=== PATIENT | female | born 1995 | race Caucasian/White ===

== ENCOUNTER 2017-02-11 17:36 | Emergency (ER) | payer OTHER | END 2017-02-11 20:09 | disposition home or self-care (01) | LOC: FER 17:36 | DX: J02.9 Acute pharyngitis, unspecified (principal) | CPT/HCPCS: 87450; 87804; 87899; J0561 ==

== ENCOUNTER 2017-04-06 15:15 | Emergency (ER) | payer OTHER ==
[2017-04-06 16:17] LABS: BASOPHIL 0.2 % (0-2); EOSINOPHIL 0.8 % (0-5); LYMPHOCYTE 18.6 % (15-48); MCH 31.6 pg (25.0-31.0); MCV 90.3 fL (78.0-100.0); MONOCYTE 6.9 % (0-12); MPV 11.2 fL (6.0-9.5); NEUTROPHIL 73.5 % (41-80); PLT 259 K/uL (150-400); RBC 4.43 M/uL (4.20-5.40); RDW 12.3 % (11.5-14.0); WBC 8.4 K/uL (4.0-10.5)
[2017-04-06 16:31] LABS: ACETAMINOPHEN (TYLENOL) < 5.0 ug/mL (10.0-30.0); ALCOHOL (ETOH) MEDICAL NONE DETECTED; SALICYLATE 7 ug/mL (0-300)
[2017-04-06 16:34] LABS: CREATININE 0.7 mg/dL (0.5-1.0); POTASSIUM 3.7 mmol/L (3.5-5.1)
[2017-04-06 16:52] LABS: BILIRUBIN NEGATIVE (NEGATIVE); BLOOD NEGATIVE Ery/uL (NEGATIVE); CLARITY CLEAR (CLEAR); COLOR YELLOW (YELLOW); GLUCOSE (U) NORMAL (NORMAL); KETONE (U) NEGATIVE (NEGATIVE); LEUKOCYTES NEGATIVE Leu/uL (NEGATIVE); NITRITE NEGATIVE (NEGATIVE); PROTEIN NEGATIVE (NEGATIVE); UROBILINOGEN 0.2 mg/dL (0.2-1.0); pH 7.5 (5.0-9.0)
[2017-04-06 17:04] LABS: AMPHETAMINES NEGATIVE (NEGATIVE); BARBITURATES NEGATIVE (NEGATIVE); BENZODIAZEPINES NEGATIVE (NEGATIVE); COCAINE NEGATIVE (NEGATIVE); MARIJUANA (THC) NEGATIVE (NEGATIVE); METHADONE NEGATIVE (NEGATIVE); TRICYCLIC ANTIDEPRESSANT NEGATIVE (NEGATIVE)
== END 2017-04-06 20:00 | disposition other institution (70) ==
LOC: FER 15:15
PROVIDERS: Emergency Medicine
DX: F32.9 Major depressive disorder, single episode, unspecified (principal); F41.9 Anxiety disorder, unspecified; F43.10 Post-traumatic stress disorder, unspecified; Z87.891 Personal history of nicotine dependence; Z79.899 Other long term (current) drug therapy
CPT/HCPCS: 36415; 80048; 80305; 81003; 85025; 99285; G0480